=== PATIENT | female | born 1955 | race Caucasian/White ===

== ENCOUNTER 2017-11-01 05:58 | Emergency (ER) | payer BC, OTHER ==
[~2017-11-01] VITALS: Ht 165.1 cm; Wt 95.7 kg
[~2017-11-01 05:58] MED LIST: ESTR0.5T PO; IBUP800T23 PO; NEXI40CA PO; ROBA750T3 PO
[2017-11-01 06:04] VITALS: BP 134/66; PULSE 87; RESP 16; TEMP 98.8
[2017-11-01 06:16] VITALS: BP 148/51; PULSE 85; RESP 18; TEMP 98.8; O2SAT 97
[2017-11-01] MEDS ORDERED: OXYB5TAB8 PO (06:30)
[2017-11-01] MEDS ORDERED: BUPR75TA PO (06:31)
[2017-11-01] MEDS ORDERED: ESTR2TAB PO (06:33)
[2017-11-01] MEDS ORDERED: OMEP20TA93 PO (06:33)
[2017-11-01] MEDS ORDERED: TYLETAB34 PO (06:33)
[2017-11-01] MEDS ORDERED: LIDOCAINE HCL 1% 20 ML VIAL INFIL ONE (06:45)
[2017-11-01] MEDS ORDERED: DOXY100C PO (07:09)
--- NOTE | 2017-11-01 07:11 | PD ---
HPI Chief Complaint: Skin Problem Time Seen by Provider: 06:02 Travel History International Travel<30 days: No Contact w/Intl Traveler<30days: No Traveled to known affect area: No History of Present Illness HPI The patient is a 61-year-old female who has a history of carbuncle formation and developed an abscess on on her right abdominal wall. The abscess was 10 x 4 cm at that time. She saw an urgent care center physician who gave her pain pills and Bactrim DS. The Bactrim DS seemed to reduce the size of the redness but the abscess remained intact. The patient complained of increasing severity of pain and came in for drainage of the abscess. Her last tetanus shot was a year ago. The patient around the belt line, if she wears tight clothes, gets abscesses/reddened areas. The patient states the redness area was 10 x 8 cm before she started on the antibiotics. PFSH Past Medical History Arthritis: No Asthma: No Autoimmune Disease: No Anxiety: Yes Heart Rhythm Problems: No Cardiovascular Problems: No High Cholesterol: No Chest Pain: No (THIS IS FIRST EPISODE) Congestive Heart Failure: No COPD: No Cerebrovascular Accident: No Gastrointestinal Disorders: Yes GERD: Yes Headaches: Yes (BAD SINUS HEADACHES) Hepatitis: No Hiatal Hernia: No Hypertension: No Musculoskeletal: No Neurologic: No Reproductive: Yes Respiratory: Yes ("BRONCHITIS") Myocardial Infarction: No Seizures: No Sleep Apnea: No Ulcer: No Tetanus Vaccination: < 5 Years Influenza Vaccination: Yes Past Surgical History Abdominal Surgery: No AICD: No Cardiac Surgery: No Ear Surgery: No Endocrine Surgery: No Eye Surgery: No Genitourinary Surgery: No Gynecologic Surgery: Yes (HYSTERECTOMY) Hysterectomy: Yes Neurologic Surgery: No Oral Surgery: No Pacemaker: No Thoracic Surgery: No Other Surgery: Yes (HYSTERECTOMIES) Social History Alcohol Use: No Tobacco Use: No (QUIT) Substance Use: No Allergies-Medications (Allergen,Severity, Reaction): Coded Allergies: No Known Allergies (Verified , 07/13/14) Reported Meds & Prescriptions Reported Meds & Active Scripts Active Reported Tylenol-Codeine #3 (Acetaminophen-Codeine) 300-30 mg Tab 1 Tab PO Q4H PRN Omeprazole 20 Mg Tab 20 Mg PO DAILY Estradiol 2 Mg Tab 2 Mg PO DAILY Bupropion HCl 75 Mg Tab 75 Mg PO BID Ditropan (Oxybutynin Chloride) 5 Mg Tab 5 Mg PO Q12HR Review of Systems Except as stated in HPI: all other systems reviewed are Neg Physical Exam Narrative GENERAL: Well-nourished, well-developed patient in moderate apparent distress with her painful right abdominal wall abscess. SKIN: Focused skin assessment warm/dry. There is a 10 x 4 cm erythematous area surrounding an indurated area measuring about 3 cm in diameter. The area is exquisitely painful to the patient. HEAD: Normocephalic. EYES: No scleral icterus. No injection or drainage. NECK: Supple, trachea midline. No JVD or lymphadenopathy. CARDIOVASCULAR: Regular rate and rhythm without murmurs, gallops, or rubs. RESPIRATORY: Breath sounds equal bilaterally. No accessory muscle use. GASTROINTESTINAL: Abdomen soft, non-tender, nondistended. MUSCULOSKELETAL: No cyanosis, or edema. BACK: Nontender without obvious deformity. No CVA tenderness. Data Data Last Documented VS Vital Signs Date Time Temp Pulse Resp B/P (MAP) Pulse Ox O2 Delivery O2 Flow Rate FiO2 11/01/17 06:16 98.8 85 18 148/51 (83) 97 Orders Orders Lidocaine 1% Inj (Xylocaine 1% Inj) (11/01/17 06:45) Abscess Culture And Gram Stain (11/01/17 06:53) MDM Medical Decision Making Medical Screen Exam Complete: Yes Emergency Medical Condition: Yes Medical Record Reviewed: Yes Differential Diagnosis Abscess, cellulitis, allergic reaction-unlikely Narrative Course The patient has an abscess surrounded by cellulitis. Procedures Procedure Narrative A field block was done above the area of the abscess cavity. The area was prepped with Betadine and, under sterile technique, the abscess was incised and blunt dissected into the abscess cavity. A considerable amount of pus was recovered. The abscess cavity was thoroughly cleaned out with peroxide moistened Q-tips and peroxide irrigation. The patient tolerated the procedure well. Diagnosis Primary Impression: Abdominal wall abscess Additional Impression: Cellulitis, abdominal wall Additional Instructions: To keep the incision open from the abscess put a peroxide moistened Q-tip and once a day, you should probably do this for 5-7 days. A heating pad as useful, turn it on as well as setting an interposed a towel between your skin and the pad to avoid zhu. Warmth is good but hot does not improve the results and is dangerous. Return to emergency department if you have any problems. Med/Other Pt SpecificInfo: Prescription(s) given Scripts Doxycycline Hyclate (Doxycycline Hyclate) 100 Mg Cap 100 MG PO BID for Infection, #20 CAP 0 Refills Prov: Roger Moyer MD 11/01/17 Disposition: 01 DISCHARGE HOME Condition: Stable Roger Moyer MD Nov 01, 2017 07:11
== END 2017-11-01 07:22 | disposition home or self-care (01) ==
LOC: PHED 05:58
DX: L02.211 Cutaneous abscess of abdominal wall (principal); L03.311 Cellulitis of abdominal wall; B95.62 Methicillin resistant Staphylococcus aureus infection as the cause of diseases classified elsewhere
CPT/HCPCS: 10060; 86403; 87070; 87186

== ENCOUNTER 2017-11-03 12:20 | Inpatient (IN) | payer OTHER ==
[~2017-11-03] VITALS: Ht 165.1 cm; Wt 100.7 kg
[~2017-11-03 12:20] MED LIST changes: +BUPR75TA PO; +DOXY100C PO; -ESTR0.5T PO; +ESTR2TAB PO; -IBUP800T23 PO; -NEXI40CA PO; +OMEP20TA93 PO; +OXYB5TAB8 PO; -ROBA750T3 PO; +TYLETAB34 PO
[2017-11-03 13:02] VITALS: BP 117/58; PULSE 66; RESP 22; TEMP 98.2; O2SAT 94
[2017-11-03] MEDS ORDERED: Vancomycin Consult Pharmacy 1 EA OTHER SCH (13:45)
[2017-11-03] MEDS ORDERED: VANCOMYCIN INJ 200 ML IV ONE (13:45)
--- NOTE | 2017-11-03 14:09 | HHI.HP ---
HPI Service [facility] Primary Care Physician Derek Dow MD, PhD Admission Diagnosis Abdominal wall abscess, failed outpt therapy Chief Complaint: Abdominal wall abscess, cellulitis Travel History International Travel<30 Days: No Contact w/Intl Traveler <30 Da: No History of Present Illness 61 y.o. obese female sent to [facility] [place] for direct admission re: abdominal wall abscess that has failed to respond to outpt abx tx and localized I&D. She was initially evaluated 10/29/16 and placed on abx. Abscess increased in size and pain so she presented to ER 11/01/17 for I&D. Cltx obtained at that time has grown out MRSA (likely community acquired form). She has been taking Bactrim DS since 10/29/16. Doxy was added 11/01/17 and she was given Rocephin injection in PCP office 11/02/17. She presented to PCP office for re-eval again today. The anterior aspect of abscess had improved somewhat, but there was evidence of progression posteriorly with more erythema, TTP and induration. Additionally exam revealed possible deep, loculated abscess. Pt reported clamminess and chills at home so direct admit was undertaken. Review of Systems Constitutional: COMPLAINS OF: Diaphoretic episodes, Fatigue, Chills Eyes: DENIES: Blurred vision, Diplopia, Eye inflammation, Eye pain, Vision loss , Photosensitivity, Double Vision Ears, nose, mouth, throat: DENIES: Tinnitus, Hearing loss, Vertigo, Nasal discharge, Oral lesions, Throat pain, Hoarseness, Ear Pain, Running Nose, Epistaxis, Sinus Pain, Toothache, Odynophagia Respiratory: DENIES: Apneas, Cough, Snoring, Wheezing, Hemoptysis, Sputum production, Shortness of breath Cardiovascular: DENIES: Chest pain, Palpitations, Syncope, Dyspnea on Exertion , PND, Lower Extremity Edema, Orthopnea, Claudication Gastrointestinal: COMPLAINS OF: Abdominal pain, Nausea Musculoskeletal: COMPLAINS OF: Back pain Integumentary: COMPLAINS OF: Rash Hematologic/lymphatic: DENIES: Bruising, Lymphadenopathy Immunologic/allergic: DENIES: Eczema, Urticaria Neurologic: DENIES: Abnormal gait, Headache, Localized weakness, Paresthesias, Seizures, Speech Problems, Tremor, Poor Balance Psychiatric: COMPLAINS OF: Anxiety, DENIES: Confusion, Mood changes, Depression , Hallucinations, Agitation, Suicidal Ideation, Homicidal Ideation, Delusions, History of Bipolar, History of Schizophrenia Past Family Social History Past Medical History Obesity Anxiety Postmenopausal Ocular HTN. Hyperlipidemia Osteopenia vit D insufficiency Past Surgical History WILIAM/BSO 1969 Colonoscopy 10/2012 sessile polyp, tubular adenoma EGD 10/2012 gastritis/esophagitis Reported Medications Tyl #3 qid prn pain Bupropion XL 150mg/d Doxycycline 100mg bid since 11/01/17 Bactrim DS 1 bid since 10/29/17 Lexapro 10mg/d Estradiol 1mg/d Flonase prn Latanprost 0.005% 1 drop each eye qhs Prilosec 20mg/d Oxybutinin 5mg/d. vit D 1000 units/d Allergies: Coded Allergies: No Known Allergies (Verified , 07/13/14) Family History Father had prostate CA and Ulcerative colitis Sister had colon CA Social History Lives with her No regular EtOH. Works for [employer] Previously smoked from 2-10 cigarettes/day for appx 37 yrs; stopped appx 10 yrs ago. Physical Exam Vital Signs Vital Signs Date Time Temp Pulse Resp B/P (MAP) Pulse Ox O2 Delivery O2 Flow Rate FiO2 11/03/17 13:02 98.2 66 22 117/58 (77 94 Physical Exam (from office exam earlier 11/03/17) GENERAL: This is a well-nourished, obese, well-developed patient, in no apparent distress. SKIN: right anterior and lateral abd wall with erythema and induration with central open wound with packing in place. +TTP; +posterior spread of erythema and induration compared to 11/02/17 exam HEAD: Atraumatic. Normocephalic. No temporal or scalp tenderness. EYES: Pupils equal round and reactive. Extraocular motions intact. No scleral icterus. No injection or drainage. ENT: Nose without bleeding, purulent drainage or septal hematoma. Airway patent. NECK: Trachea midline. No JVD or lymphadenopathy. Supple, nontender, no meningeal signs. CARDIOVASCULAR: Regular rate and rhythm without murmurs, gallops, or rubs. RESPIRATORY: Clear to auscultation. Breath sounds equal bilaterally. No wheezes , rales, or rhonchi. GASTROINTESTINAL: Abdomen soft, nondistended. +ttp over right lateral wall due to surrounding cellulitic change/abscess. No hepato-splenomegaly, or palpable masses. MUSCULOSKELETAL: Extremities without clubbing, cyanosis, or edema. No joint tenderness, effusion, or edema noted. No calf tenderness. NEUROLOGICAL: Awake and alert. Cranial nerves II through XII intact. Motor and sensory grossly within normal limits. Five out of 5 muscle strength in all muscle groups. Normal speech. Caprini VTE Risk Assessment Caprini VTE Risk Assessment: Mod/High Risk (score >= 2) Caprini Risk Assessment Model Point Value = 1 Point Value = 2 Point Value = 3 Point Value = 5 Age 41-60 Minor surgery BMI > 25 kg/m2 Swollen legs Varicose veins or History of unexplained or recurrent spontaneous Oral contraceptives or hormone replacement Sepsis (< 1 month) Serious lung disease, including pneumonia (< 1 month) Abnormal pulmonary function Acute myocardial infarction Congestive heart failure (< 1 month) History of inflammatory bowel disease Medical patient at bed rest Age 61-74 Arthroscopic surgery Major open surgery (> 45 min) Laparoscopic surgery (> 45 min) Malignancy Confined to bed (> 72 hours) Immobilizing plaster cast Central venous access Age >= 75 History of VTE Family history of VTE Factor V Leiden Prothrombin [id number] Lupus anticoagulant Anticardiolipin antibodies Elevated serum homocysteine Heparin-induced thrombocytopenia Other congenital or acquired thrombophilia Stroke (< 1 month) Elective arthroplasty Hip, pelvis, or leg fracture Acute spinal cord injury (< 1 month) Prophylaxis Regimen Total Risk Factor Score Risk Level Prophylaxis Regimen 0-1 Low Early ambulation 2 Moderate Order ONE of the following: *Sequential Compression Device (SCD) *Heparin 5000 units SQ BID 3-4 Higher Order ONE of the following medications: *Heparin 5000 units SQ TID *Enoxaparin/Lovenox 40 mg SQ daily (WT < 150 kg, CrCl > 30 mL/min) *Enoxaparin/Lovenox 30 mg SQ daily (WT < 150 kg, CrCl > 10-29 mL/min) *Enoxaparin/Lovenox 30 mg SQ BID (WT < 150 kg, CrCl > 30 mL/min) AND/OR *Sequential Compression Device (SCD) 5 or more Highest Order ONE of the following medications: *Heparin 5000 units SQ TID (Preferred with Epidurals) *Enoxaparin/Lovenox 40 mg SQ daily (WT < 150 kg, CrCl > 30 mL/min) *Enoxaparin/Lovenox 30 mg SQ daily (WT < 150 kg, CrCl > 10-29 mL/min) *Enoxaparin/Lovenox 30 mg SQ BID (WT < 150 kg, CrCl > 30 mL/min) AND *Sequential Compression Device (SCD) Assessment and Plan Problem List: (1) Abscess of skin of abdomen ICD Codes: L02.211 - Cutaneous abscess of abdominal wall Status: Acute Plan: failed outpt tx. Will start vancomycin. MRSA noted on 11/01/17 cltx. IR consult for drainage. CT Abd/pelvis per D/W IR. (2) GERD (gastroesophageal reflux disease) ICD Codes: K21.9 - Gastro-esophageal reflux disease without esophagitis Status: Chronic Plan: Protonix (3) Anxiety ICD Codes: F41.9 - Anxiety disorder, unspecified Status: Chronic Plan: continue home meds. Ativan prn Code Status full Discussed Condition With Pt, her , nurse and Dr Cox Physician Certification 2 Midnight Certification Type: Admission for Inpatient Services Order for Inpatient Services The services are ordered in accordance with Medicare regulations or non- Medicare payer requirements, as applicable. In the case of services not specified as inpatient-only, they are appropriately provided as inpatient services in accordance with the 2-midnight benchmark. Estimated LOS (days): 2 days is the estimated time the patient will need to remain in the hospital, assuming treatment plan goals are met and no additional complications. Post-Hospital Plan: Home Derek Dow MD PhD Nov 03, 2017 14:09
[2017-11-03] MEDS ORDERED: DIATRIZOATE MEGLUM/DIATRIZOATE SOD 9 ML CUP PO ONE (15:00)
[2017-11-03 16:00] VITALS: BP 121/57; PULSE 50; RESP 16; TEMP 97.4; O2SAT 95
[2017-11-03] MEDS: MORPHINE SULFATE 2 MG/ML INJ IV PUSH PRN ×2 (16:19→22:33)
[2017-11-03] MEDS: ONDANSETRON HCL 4 MG/2 ML VIAL IV PUSH PRN (16:19)
[2017-11-03] MEDS ORDERED: VANCOMYCIN INJ 2,000 MG in SODIUM CHLORID 0.9% 500 ML INJ 500 ML IV ONE (17:00)
[2017-11-03 20:00] VITALS: BP 106/54; PULSE 59; RESP 17; TEMP 97.6; O2SAT 92
[2017-11-03 20:13] LABS: AUTOMATED NEUTROPHIL # 5.3 TH/MM3 (1.8-7.7); BASOPHIL # 0.1 TH/MM3 (0-0.2); BASOPHIL % 0.9 % (0.0-2.0); EOSINOPHIL # 0.2 TH/MM3 (0-0.4); EOSINOPHIL % 2.6 % (0.0-4.0); HEMATOCRIT 32.1 % (35.0-46.0); HEMOGLOBIN 11.5 GM/DL (11.6-15.3); LYMPH % 26.4 % (9.0-44.0); LYMPHOCYTE # 2.2 TH/MM3 (1.0-4.8); MEAN CELL VOLUME 88.3 FL (80.0-100.0); MEAN CORPUSCULAR HEMOGLOBIN 31.7 PG (27.0-34.0); MEAN CORPUSCULAR HGB CONC 35.8 % (32.0-36.0); MEAN PLATELET VOLUME 8.6 FL (7.0-11.0); MONO % 7.1 % (0.0-8.0); MONOCYTE # 0.6 TH/MM3 (0-0.9); PLATELET COUNT 317 TH/MM3 (150-450); RED BLOOD COUNT 3.63 MIL/MM3 (4.00-5.30); RED CELL DISTRIBUTION WIDTH 13.1 % (11.6-17.2); WHITE BLOOD COUNT 8.4 TH/MM3 (4.0-11.0)
[2017-11-03 20:30] LABS: ALBUMIN 2.8 GM/DL (3.4-5.0); AST (GOT) 24 U/L (15-37); BICARBONATE 26.2 MEQ/L (21.0-32.0); BLOOD UREA NITROGEN 13 MG/DL (7-18); CALCIUM 8.2 MG/DL (8.5-10.1); CHLORIDE 107 MEQ/L (98-107); CREATININE 0.93 MG/DL (0.50-1.00); GLOMERULAR FILTRATION RATE 61 ML/MIN (>89); GLUCOSE,RANDOM 91 MG/DL (74-106); SODIUM (NA) 138 MEQ/L (136-145)
[2017-11-03 20:34] LABS: ALKALINE PHOSPHATASE 97 U/L (45-117); ALT (GPT) 30 U/L (10-53); PROTHROMBIN TIME - PATIENT 10.5 SEC (9.8-11.6); TOTAL BILIRUBIN ADULT 0.3 MG/DL (0.2-1.0); TOTAL PROTEIN 6.8 GM/DL (6.4-8.2)
[2017-11-03] MEDS ORDERED: IOHEXOL 350 MG/ML 10 ML VIAL (for RAD DIAG) IVCONTRAST ONE (20:37)
--- NOTE | 2017-11-03 20:50 | RADRPT ---
EXAM DATE/TIME: 11/03/2017 20:20 [facility] COMPARISON: No previous studies available for comparison. INDICATIONS : Evaluate abdominal wall abscess. IV CONTRAST: 96 cc Omnipaque 350 (iohexol) IV ORAL CONTRAST: Prescribed oral contrast ingested. RADIATION DOSE: 16.49 CTDIvol (mGy) MEDICAL HISTORY : None SURGICAL HISTORY : Hysterectomy. ENCOUNTER: Initial ACUITY: 1 day PAIN SCALE: 3/10 LOCATION: Right abdomen TECHNIQUE: Volumetric scanning of the abdomen and pelvis was performed. Using automated exposure control and ad justment of the mA and/or kV according to patient size, radiation dose was kept as low as reasonably achievable to obtain optimal diagnostic quality images. DICOM format image data is available electro nically for review and comparison. FINDINGS: LOWER LUNGS: The visualized lower lungs are clear. LIVER: Homogeneous density without lesion except for a 5 mm hypodense lesion left lobe of liver.. There is no dilation of the biliary tree. No calcified gallstones. SPLEEN: Normal size without lesion. PANCREAS: Within normal limits. KIDNEYS: Normal in size and shape. There is no mass, stone or hydronephrosis. ADRENAL GLANDS: 3.0 x 3.8 cm mass in the left adrenal gland indeterminate by size. Outpatient adrenal MRI is recommen ded. VASCULAR: There is no aortic aneurysm. BOWEL/MESENTERY: The stomach, small bowel, and colon demonstrate no acute abnormality. There is no free intraperitone al air or fluid. Small duodenal diverticulum. ABDOMINAL WALL: There is a very impressive edema and subcutaneous air in the right abdominal wall. There numerous tin y locules of air with some early fluid. I don't see drainable abscess but there is marked inflammatio n. There is a large lipoma in the left lateral abdominal wall. RETROPERITONEUM: There is no lymphadenopathy. BLADDER: No wall thickening or mass. Posterior the bladder there is a 3.7 cm low-density mass of uncertain prabhjot ology. Could be a seroma or lymphocele related to the hysterectomy. Could be a bladder diverticulum. It is not overly concerning in appearance, being primarily cystic in density REPRODUCTIVE: Status post hysterectomy INGUINAL: There is no lymphadenopathy or hernia. MUSCULOSKELETAL: Within normal limits for patient age. CONCLUSION: Significant soft tissue edema and subcutaneous air in the right abdominal sidewall with overlying ski n thickening concerning for a severe cellulitis. At this point did not see drainable fluid collection or abscess for drainage. Large lipoma in the left lateral sidewall. Solid left adrenal mass needs outpatient MRI with in phase out of phase imaging Mass posterior to the bladder mostly benign in appearance. Roque Mazariegos MD on November 03, 2017 at 20:43 Board Certified Radiologist. This report was verified electronically.
[2017-11-03] MEDS ORDERED: OXYBUTYNIN CHLORIDE 5 MG TAB PO SCH (21:00)
[2017-11-03] MEDS: LORazepam 1 MG TAB PO PRN (22:33)
[2017-11-04] VITALS: BP 114/53; PULSE 58; RESP 18; TEMP 98.4; O2SAT 94
[2017-11-04 08:00] VITALS: BP 107/53; PULSE 68; RESP 16; TEMP 97.5; O2SAT 94
[2017-11-04] MEDS: buPROPion HCL 150 MG SUSTAINED RELEASE TAB PO SCH (09:06)
[2017-11-04] MEDS: MORPHINE SULFATE 2 MG/ML INJ IV PUSH PRN ×4 (09:06→22:12)
[2017-11-04] MEDS: OXYBUTYNIN CHLORIDE 5 MG TAB PO SCH (09:06)
[2017-11-04] MEDS: ONDANSETRON HCL 4 MG/2 ML VIAL IV PUSH PRN ×2 (09:07→23:02)
[2017-11-04] MEDS: PANTOPRAZOLE SOD 40 MG DELAYED RELEASE TAB PO SCH (09:07)
[2017-11-04] MEDS: ESCITALOPRAM OXALATE 10 MG TAB PO SCH (09:07)
[2017-11-04] MEDS: ESTRADIOL 1 MG TAB PO SCH (09:07)
[2017-11-04 10:07] LABS: CREATININE 0.9 MG/DL (0.50-1.00)
--- NOTE | 2017-11-04 11:33 | HHI.PR ---
Subjective Remarks Pt reports that she does not feel that her cellulitis is not much better today She has been afebrile Objective Vitals Vital Signs Date Time Temp Pulse Resp B/P (MAP) Pulse Ox O2 Delivery O2 Flow Rate FiO2 11/04/17 08:00 97.5 68 16 107/53 (71) 94 11/04/17 00:00 98.4 58 18 114/53 (73) 94 11/03/17 20:00 97.6 59 17 106/54 (71) 92 11/03/17 16:00 97.4 50 16 121/57 (78) 95 11/03/17 13:02 98.2 66 22 117/58 (77) 94 Result Diagram: 11/03/17195111/04/17921 Other Results Laboratory Tests Test 11/03/17 19:52 11/04/17 09:22 White Blood Count 8.4 TH/MM3 Red Blood Count 3.63 MIL/MM3 Hemoglobin 11.5 GM/DL Hematocrit 32.1 % Mean Corpuscular Volume 88.3 FL Mean Corpuscular Hemoglobin 31.7 PG Mean Corpuscular Hemoglobin Concent 35.8 % Red Cell Distribution Width 13.1 % Platelet Count 317 TH/MM3 Mean Platelet Volume 8.6 FL Neutrophils (%) (Auto) 63.0 % Lymphocytes (%) (Auto) 26.4 % Monocytes (%) (Auto) 7.1 % Eosinophils (%) (Auto) 2.6 % Basophils (%) (Auto) 0.9 % Neutrophils # (Auto) 5.3 TH/MM3 Lymphocytes # (Auto) 2.2 TH/MM3 Monocytes # (Auto) 0.6 TH/MM3 Eosinophils # (Auto) 0.2 TH/MM3 Basophils # (Auto) 0.1 TH/MM3 CBC Comment DIFF FINAL Differential Comment Prothrombin Time 10.5 SEC Prothromb Time International Ratio 1.0 RATIO Activated Partial Thromboplast Time 29.2 SEC Blood Urea Nitrogen 13 MG/DL Creatinine 0.93 MG/DL 0.90 MG/DL Random Glucose 91 MG/DL Total Protein 6.8 GM/DL Albumin 2.8 GM/DL Calcium Level 8.2 MG/DL Alkaline Phosphatase 97 U/L Aspartate Amino Transf (AST/SGOT) 24 U/L Alanine Aminotransferase (ALT/SGPT) 30 U/L Total Bilirubin 0.3 MG/DL Sodium Level 138 MEQ/L Potassium Level 4.0 MEQ/L Chloride Level 107 MEQ/L Carbon Dioxide Level 26.2 MEQ/L Anion Gap 5 MEQ/L Estimat Glomerular Filtration Rate 61 ML/MIN 63 ML/MIN Imaging Last Impressions Abdomen/Pelvis CT 11/03/17 0000 Signed Impressions: Service Date/Time: Friday, November 03, 2017 20:20 - CONCLUSION: Significant soft tissue edema and subcutaneous air in the right abdominal sidewall with overlying skin thickening concerning for a severe cellulitis. At this point did not see drainable fluid collection or abscess for drainage. Large lipoma in the left lateral sidewall. Solid left adrenal mass needs outpatient MRI with in phase out of phase imaging Mass posterior to the bladder mostly benign in appearance. Roque Mazariegos MD Objective Remarks General: NAD, AAOx3 Chest: CTA bilaterally Cardiac: Regular Abd: +BS, soft, erythematous skin changes on the right mid abdomen and flank with warmth and tenderness to the touch. There is some fluctuance to the skin. Previous I&D site was just packed with iodoform gauze. Ext: No edema A/P Problem List: (1) Abscess of skin of abdomen ICD Codes: L02.211 - Cutaneous abscess of abdominal wall Status: Acute Plan: Abdominal wall abscess MRSA infection - Pt is a 61 y/o female who was directly admitted by her PCP, Dr. Dow, for an abdominal wall abscess that has failed to respond to outpt abx tx and localized I&D. - She was initially evaluated 10/29/16 and placed on Bactrim DS. The abscess increased in size and pain so she presented to ER 11/01/17 for I&D. Culture obtained at that time has grown out MRSA ( likely community acquired form). She has been taking Bactrim DS since 10/29/16 and Doxy was added on 11/01/17. Pt was also given Rocephin injection in PCP office on 11/02/17. She presented back to PCP office for re-eval on 11/03 and the anterior aspect of abscess had improved somewhat, but there was evidence of progression posteriorly with more erythema, tenderness and induration. - Pt was started on Vancomycin IV on 11/03/17. - MRSA noted on culture from 11/01/17 - CT Abd/pelvis (11/03/17) --> Significant soft tissue edema and subcutaneous air in the right abdominal sidewall with overlying skin thickening concerning for a severe cellulitis. At this point did not see drainable fluid collection or abscess for drainage. Large lipoma in the left lateral sidewall. - Add on Zosyn to cover for anaerobes with noted gas in the underlying tissues - Cont. with IV Abx and monitor clinical progress - Consult General Surgery, case discussed with Dr. Flores - Daily dressing changes and packing with iodoform gauze - Supportive care - DVT prophylaxis with SCDs Adrenal Mass - CT Abd/pelvis (11/03/17) also noted a solid left adrenal mass - She will need outpatient MRI for followup GERD - PPI Anxiety - Continue home meds. - Ativan prn (2) GERD (gastroesophageal reflux disease) ICD Codes: K21.9 - Gastro-esophageal reflux disease without esophagitis Status: Chronic (3) Anxiety ICD Codes: F41.9 - Anxiety disorder, unspecified Status: Chronic Assessment and Plan Patient examined. Assessment and plan formulated with Latasha Hogue PA-C. I agree with the above. large right flank cellulitis. s/p i/d 11/01...mrsa...progressed despite po abx. ct shows severe celllulitis..no obvious abscess but alot of gas in the soft tissues. no clinical improvement overnight on vanco add zosyn. discussed with gen surg Dr Flores to follow along. Latasha Hogue Nov 04, 2017 11:32 Tevin Cox MD Nov 04, 2017 12:42
[2017-11-04 12:00] VITALS: BP 113/52; PULSE 70; RESP 18; TEMP 97.5; O2SAT 93
--- NOTE | 2017-11-04 13:16 | PD.CONS ---
HPI Service General Surgery Consult Requested By Dr. Cox Reason for Consult right flank abscess Primary Care Physician Derek Dow MD, PhD History of Present Illness 61 yo F with right flank infection for about 5 days. It started as small boil but progressively worsened. She underwent I&D in ED without much improvement. Cx grew MRSA. She was on outpatient antibiotics and seen by Dr. Dow. Yesterday she presented to ED for the same. CT a/p shows edema and SQ air. No leukocytosis. She c/o significant pain at the site. Review of Systems Constitutional: DENIES: Fever, Chills Eyes: DENIES: Eye inflammation, Eye pain Respiratory: DENIES: Wheezing, Shortness of breath Cardiovascular: DENIES: Chest pain, Palpitations Gastrointestinal: COMPLAINS OF: Abdominal pain, DENIES: Nausea, Vomiting Integumentary: DENIES: Pruritus, Rash Neurologic: DENIES: Paresthesias, Seizures Past Family Social History Past Medical History Obesity Anxiety Ocular HTN. Hyperlipidemia Osteopenia vit D insufficiency Past Surgical History WILIAM/BSO 1968 Colonoscopy 10/2012 sessile polyp, tubular adenoma EGD 10/2012 gastritis/esophagitis Reported Medications Reported Meds & Active Scripts Active Doxycycline Hyclate 100 Mg Cap 100 Mg PO BID Reported Tylenol-Codeine #3 (Acetaminophen-Codeine) 300-30 mg Tab 1 Tab PO Q4H PRN Omeprazole 20 Mg Tab 20 Mg PO DAILY Estradiol 2 Mg Tab 2 Mg PO DAILY Bupropion HCl 75 Mg Tab 75 Mg PO BID Ditropan (Oxybutynin Chloride) 5 Mg Tab 5 Mg PO Q12HR Allergies: Coded Allergies: No Known Allergies (Verified Allergy, Unknown, 11/03/17) Active Ordered Medications Current Medications Medications (Trade) Dose Ordered Sig/Tia Route Start Time Stop Time Status Last Admin (Morphine Inj) 2 mg Q3H PRN IV PUSH 11/03/17 13:45 11/04/17 09:06 Pharmacy Profile Note 0 ml @ 0 mls/hr UNSCH OTHER 11/03/17 13:45 (Protonix) 40 mg DAILY PO 11/04/17 09:00 11/04/17 09:07 (Lexapro) 10 mg DAILY PO 11/04/17 09:00 11/04/17 09:07 (Zofran Inj) 4 mg Q6HR PRN IV PUSH 11/03/17 13:45 11/04/17 09:07 (Wellbutrin Sr) 150 mg DAILY PO 11/04/17 09:00 11/04/17 09:06 (Ativan) 1 mg Q8H PRN PO 11/03/17 13:45 11/03/17 22:33 (Ditropan) 5 mg DAILY PO 11/04/17 09:00 11/04/17 09:06 (Estradiol) 1 mg DAILY PO 11/04/17 09:00 11/04/17 09:07 Vancomycin HCl 1500 mg/Sodium Chloride 515 ml @ 250 mls/hr Q18H IV 11/04/17 11:00 Miscellaneous Information SPECIFIC LAB TO BE DRAWN: VANCO TROUGH DATE TO BE DR... ONCE ONCE .XX 11/05/17 22:45 11/05/17 22:46 Piperacillin Sod/ Tazobactam Sod 100 ml @ 200 mls/hr Q6H IV 11/04/17 14:00 Family History Noncontributory Social History No current alcohol tobacco or drug use. Physical Exam Vital Signs Vital Signs Date Time Temp Pulse Resp B/P (MAP) Pulse Ox O2 Delivery O2 Flow Rate FiO2 11/04/17 12:00 97.5 70 18 113/52 (72) 93 11/04/17 08:00 97.5 68 16 107/53 (71) 94 11/04/17 00:00 98.4 58 18 114/53 (73) 94 11/03/17 20:00 97.6 59 17 106/54 (71) 92 11/03/17 16:00 97.4 50 16 121/57 (78) 95 Physical Exam GENERAL: Awake and alert. No acute distress. Cooperative. Obese. HEAD: Normocephalic. Atraumatic. EYES: Pupils equal round and reactive to light bilaterally. No scleral icterus. ENT: Moist oral mucosa. NECK: Trachea midline. CHEST: Lungs clear to auscultation bilaterally with no wheezing or rhonchi. No respiratory distress. CARDIOVASCULAR: Regular rate and rhythm. ABDOMEN: Obese. Right flank with erythema and induration and deep fluctuance. Surrounding soft tissue is nontender. No crepitus present. EXTREMITIES: No cyanosis or edema. SKIN: Warm, dry, nonjaundiced. Laboratory Laboratory Tests Test 11/03/17 19:52 11/04/17 09:22 White Blood Count 8.4 Red Blood Count 3.63 Hemoglobin 11.5 Hematocrit 32.1 Mean Corpuscular Volume 88.3 Mean Corpuscular Hemoglobin 31.7 Mean Corpuscular Hemoglobin Concent 35.8 Red Cell Distribution Width 13.1 Platelet Count 317 Mean Platelet Volume 8.6 Neutrophils (%) (Auto) 63.0 Lymphocytes (%) (Auto) 26.4 Monocytes (%) (Auto) 7.1 Eosinophils (%) (Auto) 2.6 Basophils (%) (Auto) 0.9 Neutrophils # (Auto) 5.3 Lymphocytes # (Auto) 2.2 Monocytes # (Auto) 0.6 Eosinophils # (Auto) 0.2 Basophils # (Auto) 0.1 CBC Comment DIFF FINAL Differential Comment Prothrombin Time 10.5 Prothromb Time International Ratio 1.0 Activated Partial Thromboplast Time 29.2 Blood Urea Nitrogen 13 Creatinine 0.93 0.90 Random Glucose 91 Total Protein 6.8 Albumin 2.8 Calcium Level 8.2 Alkaline Phosphatase 97 Aspartate Amino Transf (AST/SGOT) 24 Alanine Aminotransferase (ALT/SGPT) 30 Total Bilirubin 0.3 Sodium Level 138 Potassium Level 4.0 Chloride Level 107 Carbon Dioxide Level 26.2 Anion Gap 5 Estimat Glomerular Filtration Rate 61 63 Result Diagram: 11/03/17195111/04/17 0922 Imaging Last Impressions Abdomen/Pelvis CT 11/03/17 0000 Signed Impressions: Service Date/Time: Friday, November 03, 2017 20:20 - CONCLUSION: Significant soft tissue edema and subcutaneous air in the right abdominal sidewall with overlying skin thickening concerning for a severe cellulitis. At this point did not see drainable fluid collection or abscess for drainage. Large lipoma in the left lateral sidewall. Solid left adrenal mass needs outpatient MRI with in phase out of phase imaging Mass posterior to the bladder mostly benign in appearance. Roque Mazariegos MD Assessment and Plan Assessment and Plan 61 yo F with severe cellulitis and underlying abscess, not improving with local I&D and antibiotics. Plan to proceed to OR tomorrow for incision and drainage of right flank abscess, possible vac placement. Discussed in detail with the patient and she desires to proceed. Mason Flores MD Nov 04, 2017 13:16
[2017-11-04] MEDS: VANCOMYCIN INJ 1,500 MG in SODIUM CHLORID 0.9% 500 ML INJ 500 ML IV SCH (13:21)
[2017-11-04] MEDS: PIPERACIL-TAZO 4.5 GM PREMIX 100 ML IV SCH ×2 (15:38→20:59)
[2017-11-04 16:00] VITALS: BP 115/56; PULSE 64; RESP 17; TEMP 97.2; O2SAT 92
[2017-11-04 20:00] VITALS: BP 104/50; PULSE 88; RESP 16; TEMP 98.2; O2SAT 91
[2017-11-04] MEDS: LORazepam 1 MG TAB PO PRN (22:12)
[2017-11-04] MEDS ORDERED: CHLORHEXIDINE GLUCONATE 2 % 1 PACK (2 CLOTHS) TOPICAL PRN (23:15)
[2017-11-04] MEDS ORDERED: SODIUM CHLORID 0.9% 500 ML IV PRN (23:15)
[2017-11-04] MEDS ORDERED: POVIDONE IODINE 5% (ANTISEPSIS KIT) 4 APPLICATIONS EACH NARE PRN (23:15)
[2017-11-04] MEDS ORDERED: LACTATED RINGER'S 1000 ML IV PRN (23:15)
[2017-11-05] VITALS: BP 110/49; PULSE 82; RESP 16; TEMP 98.7; O2SAT 95
[2017-11-05] MEDS: PIPERACIL-TAZO 4.5 GM PREMIX 100 ML IV SCH ×4 (01:05→22:40)
[2017-11-05] MEDS: VANCOMYCIN INJ 1,500 MG in SODIUM CHLORID 0.9% 500 ML INJ 500 ML IV SCH ×2 (05:01→22:40)
[2017-11-05 05:34] LABS: AUTOMATED NEUTROPHIL # 4.9 TH/MM3 (1.8-7.7); BASOPHIL # 0.1 TH/MM3 (0-0.2); BASOPHIL % 0.9 % (0.0-2.0); EOSINOPHIL # 0.2 TH/MM3 (0-0.4); EOSINOPHIL % 2.6 % (0.0-4.0); HEMATOCRIT 34.2 % (35.0-46.0); HEMOGLOBIN 11.2 GM/DL (11.6-15.3); LYMPH % 23.7 % (9.0-44.0); LYMPHOCYTE # 1.8 TH/MM3 (1.0-4.8); MEAN CELL VOLUME 89.7 FL (80.0-100.0); MEAN CORPUSCULAR HEMOGLOBIN 29.3 PG (27.0-34.0); MEAN CORPUSCULAR HGB CONC 32.6 % (32.0-36.0); MEAN PLATELET VOLUME 8.4 FL (7.0-11.0); MONO % 7.3 % (0.0-8.0); MONOCYTE # 0.6 TH/MM3 (0-0.9); NEUT % 65.5 % (16.0-70.0); PLATELET COUNT 334 TH/MM3 (150-450); RED BLOOD COUNT 3.81 MIL/MM3 (4.00-5.30); RED CELL DISTRIBUTION WIDTH 13.3 % (11.6-17.2); WHITE BLOOD COUNT 7.5 TH/MM3 (4.0-11.0)
[2017-11-05 06:01] LABS: BICARBONATE 29.1 MEQ/L (21.0-32.0); CALCIUM 8.2 MG/DL (8.5-10.1); CREATININE 0.95 MG/DL (0.50-1.00); MAGNESIUM 2.2 MG/DL (1.5-2.5)
[2017-11-05 08:00] VITALS: BP 141/55; PULSE 68; RESP 17; TEMP 97.8; O2SAT 93
[2017-11-05] MEDS: OXYBUTYNIN CHLORIDE 5 MG TAB PO SCH (08:54)
[2017-11-05] MEDS: buPROPion HCL 150 MG SUSTAINED RELEASE TAB PO SCH (08:55)
[2017-11-05] MEDS: ESCITALOPRAM OXALATE 10 MG TAB PO SCH (08:55)
[2017-11-05] MEDS: ESTRADIOL 1 MG TAB PO SCH (08:55)
[2017-11-05] MEDS: PANTOPRAZOLE SOD 40 MG DELAYED RELEASE TAB PO SCH (08:55)
[2017-11-05] MEDS ORDERED: BUPIVACAINE HCL PF 0.5% 30 ML VIAL ONE (11:59)
[2017-11-05 12:00] VITALS: BP 121/59; PULSE 62; RESP 18; TEMP 98.1; O2SAT 95
[2017-11-05] MEDS ORDERED: SUCCINYLCHOLINE CHLORIDE 200 MG/10 ML VIAL IV ONE (12:00)
[2017-11-05] MEDS ORDERED: ONDANSETRON HCL 4 MG/2 ML VIAL IV ONE (12:00)
[2017-11-05] MEDS ORDERED: LIDOCAINE HCL 1% PF 5 ML SYRINGE OTHER ONE (12:00)
[2017-11-05] MEDS ORDERED: ePHEDrine/NS 25 MG/5 ML SYRINGE IV ONE (12:00)
[2017-11-05] MEDS ORDERED: PROPOFOL 200 MG/20 ML AMP IV ONE (12:00)
[2017-11-05] MEDS ORDERED: DEXAMETHASONE SOD PHOS 4 MG/ML VIAL IV ONE (12:00)
[2017-11-05] MEDS ORDERED: ROCURONIUM INJ 50 MG/5 ML SYRINGE IV PUSH ONE (12:00)
[2017-11-05] MEDS ORDERED: BUPIVACAINE/EPINEPHRINE 0.75% PF 30 ML VIAL ONE (13:29)
--- NOTE | 2017-11-05 14:05 | PD.OP ---
cc: Mason Flores MD; Derek Dow MD PhD Operative Report Date of Surgery: Nov 05, 2017 Preoperative Diagnosis: (1) Abscess of skin of abdomen Postoperative Diagnosis: (1) Abscess of skin of abdomen Procedure: Incision and drainage right flank abscess with placement of wound vac Anesthesia: GEN Surgeon: Mason Flores Manager Dairy(s): Neto Operation and Findings: EBL: 20cc Operative findings: right flank cellulitis and abscess with small amt necrotic fatty tissue Procedure in detail: The patient was taken to the operating room placed in supine position. General and anesthesia was induced. She was then placed lateral on beanbag with right side up. The right flank was prepped and draped in usual sterile fashion. Surgical timeout was performed to verify correct patient procedure and site. The patient was on scheduled antibiotics. Local anesthetic was injected in skin and subcutaneous tissues tissue overlying the right flank abscess. The patient had a small site of drainage at at previous incision and drainage site. There was fluctuance and induration and erythema laterally from this site along the right flank. The incision was extended laterally approximately 10 cm. Dissection was carried out through subcutaneous tissue with electrocautery. The abscess cavity was encountered with drainage of a moderate amount of purulent fluid. There were couple different areas of necrotic subcutaneous tissue which were debrided with electrocautery and with curettes. The fluid culture and a tissue culture was sent. All loculations were broken up. The cavity was irrigated with normal saline. Hemostasis was achieved. A small wound VAC was cut to size and placed in the wound. There was a good seal. The VAC was placed and -125 mmHg of medium intensity continuous suction. The patient tolerated procedure well and was taken to PACU in stable condition. Mason Flores MD Nov 05, 2017 14:05
[2017-11-05] MEDS ORDERED: DO NOT ADM ANY ANTICOAGULANT DRUGS PRN (14:12)
[2017-11-05 16:00] VITALS: BP 122/58; PULSE 78; RESP 18; TEMP 95.8; O2SAT 97
--- NOTE | 2017-11-05 16:19 | HHI.PR ---
Subjective Remarks pt back from surgery. present. Objective Vitals heart reg lung cta abd right flank wound vac ext no edema Vital Signs Date Time Temp Pulse Resp B/P (MAP) Pulse Ox O2 Delivery O2 Flow Rate FiO2 11/05/17 16:00 95.8 78 18 122/58 (79) 97 11/05/17 15:00 98.4 82 15 123/58 (79) 95 Nasal Cannula 3 11/05/17 14:45 81 14 123/57 (79) 93 Nasal Cannula 3 11/05/17 14:30 84 14 134/61 (85) 93 Nasal Cannula 3 11/05/17 14:12 98.7 88 14 157/65 (95) 93 Nasal Cannula 3 11/05/17 12:00 98.1 62 18 121/59 (79) 95 11/05/17 08:00 97.8 68 17 141/55 (83) 93 11/05/17 00:00 98.7 82 16 110/49 (69) 95 11/04/17 20:00 98.2 88 16 104/50 (68) 91 11/05/17 11/05/17 11/06/17 15:00 23:00 07:00 Intake Total 1315 ml Output Total 20 ml Balance 1295 ml IV Total 1315 ml Output Estimated Blood Loss 20 ml Result Diagram: 11/05/17 0513 11/05/17 0513 Imaging Last Impressions Abdomen/Pelvis CT 11/03/17 0000 Signed Impressions: Service Date/Time: Friday, November 03, 2017 20:20 - CONCLUSION: Significant soft tissue edema and subcutaneous air in the right abdominal sidewall with overlying skin thickening concerning for a severe cellulitis. At this point did not see drainable fluid collection or abscess for drainage. Large lipoma in the left lateral sidewall. Solid left adrenal mass needs outpatient MRI with in phase out of phase imaging Mass posterior to the bladder mostly benign in appearance. Roque Mazariegos MD A/P Problem List: (1) Abscess of skin of abdomen ICD Codes: L02.211 - Cutaneous abscess of abdominal wall Status: Acute Plan: Abdominal wall abscess MRSA infection - Pt is a 61 y/o female who was directly admitted by her PCP, Dr. Dow, for an abdominal wall abscess that has failed to respond to outpt abx tx and localized I&D. - She was initially evaluated 10/29/16 and placed on Bactrim DS. The abscess increased in size and pain so she presented to ER 11/01/17 for I&D. Culture obtained at that time has grown out MRSA ( likely community acquired form). She has been taking Bactrim DS since 10/29/16 and Doxy was added on 11/01/17. Pt was also given Rocephin injection in PCP office on 11/02/17. She presented back to PCP office for re-eval on 11/03 and the anterior aspect of abscess had improved somewhat, but there was evidence of progression posteriorly with more erythema, tenderness and induration. - Pt was started on Vancomycin IV on 11/03/17. - MRSA noted on culture from 11/01/17 - CT Abd/pelvis (11/03/17) --> Significant soft tissue edema and subcutaneous air in the right abdominal sidewall with overlying skin thickening concerning for a severe cellulitis. Large lipoma in the left lateral sidewall. - Added on Zosyn to cover for anaerobes with noted gas in the underlying tissues on 11/04 -consulted dr Flores who took pt to OR on 11/05 for debridement of abscess and wound vac placed Adrenal Mass - CT Abd/pelvis (11/03/17) also noted a solid left adrenal mass - She will need outpatient MRI for followup - We will need to discuss with her before d/c home GERD - PPI Anxiety - Continue home meds. - Ativan prn (2) GERD (gastroesophageal reflux disease) ICD Codes: K21.9 - Gastro-esophageal reflux disease without esophagitis Status: Chronic (3) Anxiety ICD Codes: F41.9 - Anxiety disorder, unspecified Status: Chronic Tevin Cox MD Nov 05, 2017 16:19
--- NOTE | 2017-11-05 16:52 | EKG ---
Date Performed: 11/05/2017 Time Performed: 10:02:57 PTAGE: 61 years EKG: SINUS BRADYCARDIA WITH OCCASIONAL VENTRICULAR PREMATURE COMPLEXES NONSPECIFIC T-WAVE ABNORM ALITY BORDERLINE ECG PREVIOUS TRACING : 01/28/2012 12.22 Since previous tracing, no significant change noted DOCTOR: Ralph Padilla Interpretating Date/Time 11/05/2017 16:51:24
[2017-11-05 20:00] VITALS: BP 118/58; PULSE 79; RESP 21; TEMP 95.6; O2SAT 95
[2017-11-05] MEDS: MORPHINE SULFATE 2 MG/ML INJ IV PUSH PRN (22:35)
[2017-11-05] MEDS ORDERED: PHARMACY ORDERED LAB ONE (22:45)
[2017-11-06 00:09] VITALS: BP 115/60; PULSE 75; RESP 21; TEMP 96.5; O2SAT 94
[2017-11-06] MEDS: oxyCODONE/ACETAMINOPHEN 5 MG/325 MG TAB PO PRN ×3 (01:09→18:34)
[2017-11-06] MEDS: ONDANSETRON HCL 4 MG/2 ML VIAL IV PUSH PRN (01:09)
[2017-11-06] MEDS: PIPERACIL-TAZO 4.5 GM PREMIX 100 ML IV SCH ×3 (01:35→13:22)
[2017-11-06] MEDS: LORazepam 1 MG TAB PO PRN ×2 (02:55→22:33)
[2017-11-06 04:00] VITALS: BP 99/49; PULSE 77; RESP 20; TEMP 96.2; O2SAT 93
[2017-11-06 07:30] LABS: CREATININE 0.8 MG/DL (0.50-1.00)
[2017-11-06 08:00] VITALS: BP 102/52; PULSE 62; RESP 20; TEMP 97; O2SAT 95
[2017-11-06] MEDS: ESTRADIOL 1 MG TAB PO SCH (10:18)
[2017-11-06] MEDS: PANTOPRAZOLE SOD 40 MG DELAYED RELEASE TAB PO SCH (10:18)
[2017-11-06] MEDS: buPROPion HCL 150 MG SUSTAINED RELEASE TAB PO SCH (10:18)
[2017-11-06] MEDS: OXYBUTYNIN CHLORIDE 5 MG TAB PO SCH (10:18)
[2017-11-06] MEDS: ESCITALOPRAM OXALATE 10 MG TAB PO SCH (10:18)
[2017-11-06 12:00] VITALS: BP 95/57; PULSE 73; RESP 20; TEMP 97.9; O2SAT 96
--- NOTE | 2017-11-06 12:14 | HHI.PR ---
Subjective Subjective Notes No complaints. Stable. Objective Vitals/I&O Vital Signs Date Time Temp Pulse Resp B/P (MAP) Pulse Ox O2 Delivery O2 Flow Rate FiO2 11/06/17 08:00 97.0 62 20 102/52 (69) 95 11/05/17 16:00 Nasal Cannula 2.00 Labs Laboratory Tests Test 11/06/17 01:25 11/06/17 04:48 Vancomycin Level Trough 9.8 Creatinine 0.80 Estimat Glomerular Filtration Rate 72 Date/Time Source Procedure Growth Status 11/05/17 13:37 Wound Thigh Gram Stain - Final Resulted 11/05/17 13:37 Wound Thigh Wound Culture Pending Resulted Radiology Last Impressions Abdomen/Pelvis CT 11/03/17 0000 Signed Impressions: Service Date/Time: Friday, November 03, 2017 20:20 - CONCLUSION: Significant soft tissue edema and subcutaneous air in the right abdominal sidewall with overlying skin thickening concerning for a severe cellulitis. At this point did not see drainable fluid collection or abscess for drainage. Large lipoma in the left lateral sidewall. Solid left adrenal mass needs outpatient MRI with in phase out of phase imaging Mass posterior to the bladder mostly benign in appearance. Roque Mazariegos MD Narrative Exam NAD Right flank vac in place with good seal minimal output, surrounding erythema stable, induration improved A/P Assessment and Plan 61 yo F POD 1 I&D right flank abscess with vac placement. Cont IV antibiotics and vac. Plan vac change Wednesday with possible dc Wednesday or Wednesday with portable vac. Mark,Mason REECE Nov 06, 2017 12:14
--- NOTE | 2017-11-06 15:31 | HHI.PR ---
Subjective Remarks Pts pain is controlled well with oral pain meds Pt has been afebrile Objective Vitals Vital Signs Date Time Temp Pulse Resp B/P (MAP) Pulse Ox O2 Delivery O2 Flow Rate FiO2 11/06/17 12:00 97.9 73 20 95/57 (70) 96 11/06/17 08:00 97.0 62 20 102/52 (69) 95 11/06/17 04:00 96.2 77 20 99/49 (66) 93 11/06/17 00:09 96.5 75 21 115/60 (78) 94 11/05/17 20:00 95.6 79 21 118/58 (78) 95 11/05/17 16:00 95.8 78 18 122/58 (79) 97 11/05/17 16:00 95 Nasal Cannula 2.00 11/06/17 11/06/17 11/07/17 15:00 23:00 07:00 Intake Total 240 ml Balance 240 ml Intake Oral 240 ml Result Diagram: 11/05/17 0513 11/06/17 0448 Other Results Laboratory Tests Test 11/05/17 05:13 11/06/17 01:25 11/06/17 04:48 White Blood Count 7.5 TH/MM3 Red Blood Count 3.81 MIL/MM3 Hemoglobin 11.2 GM/DL Hematocrit 34.2 % Mean Corpuscular Volume 89.7 FL Mean Corpuscular Hemoglobin 29.3 PG Mean Corpuscular Hemoglobin Concent 32.6 % Red Cell Distribution Width 13.3 % Platelet Count 334 TH/MM3 Mean Platelet Volume 8.4 FL Neutrophils (%) (Auto) 65.5 % Lymphocytes (%) (Auto) 23.7 % Monocytes (%) (Auto) 7.3 % Eosinophils (%) (Auto) 2.6 % Basophils (%) (Auto) 0.9 % Neutrophils # (Auto) 4.9 TH/MM3 Lymphocytes # (Auto) 1.8 TH/MM3 Monocytes # (Auto) 0.6 TH/MM3 Eosinophils # (Auto) 0.2 TH/MM3 Basophils # (Auto) 0.1 TH/MM3 CBC Comment DIFF FINAL Differential Comment Blood Urea Nitrogen 13 MG/DL Creatinine 0.95 MG/DL 0.80 MG/DL Random Glucose 101 MG/DL Calcium Level 8.2 MG/DL Magnesium Level 2.2 MG/DL Sodium Level 139 MEQ/L Potassium Level 4.1 MEQ/L Chloride Level 104 MEQ/L Carbon Dioxide Level 29.1 MEQ/L Anion Gap 6 MEQ/L Estimat Glomerular Filtration Rate 59 ML/MIN 72 ML/MIN Vancomycin Level Trough 9.8 MCG/ML Imaging Last Impressions Abdomen/Pelvis CT 11/03/17 0000 Signed Impressions: Service Date/Time: Friday, November 03, 2017 20:20 - CONCLUSION: Significant soft tissue edema and subcutaneous air in the right abdominal sidewall with overlying skin thickening concerning for a severe cellulitis. At this point did not see drainable fluid collection or abscess for drainage. Large lipoma in the left lateral sidewall. Solid left adrenal mass needs outpatient MRI with in phase out of phase imaging Mass posterior to the bladder mostly benign in appearance. Roque Mazariegos MD Objective Remarks General: NAD, AAOx3 Chest: CTA Cardiac: Regular Abd: +BS, wound vac in place in mid right abdomen, previous surrounding erythema has improved Ext: No edema A/P Problem List: (1) Abscess of skin of abdomen ICD Codes: L02.211 - Cutaneous abscess of abdominal wall Status: Acute Plan: Abdominal wall abscess MRSA infection - Pt is a 61 y/o female who was directly admitted by her PCP, Dr. Dow, for an abdominal wall abscess that has failed to respond to outpt abx tx and localized I&D. - She was initially evaluated 10/29/16 and placed on Bactrim DS. The abscess increased in size and pain so she presented to ER 11/01/17 for I&D. Culture obtained at that time has grown out MRSA ( likely community acquired form). She has been taking Bactrim DS since 10/29/16 and Doxy was added on 11/01/17. Pt was also given Rocephin injection in PCP office on 11/02/17. She presented back to PCP office for re-eval on 11/03 and the anterior aspect of abscess had improved somewhat, but there was evidence of progression posteriorly with more erythema, tenderness and induration. - Pt was started on Vancomycin IV on 11/03/17. - MRSA noted on culture from 11/01/17 - CT Abd/pelvis (11/03/17) --> Significant soft tissue edema and subcutaneous air in the right abdominal sidewall with overlying skin thickening concerning for a severe cellulitis. Large lipoma in the left lateral sidewall. - Zosyn added on 11/04/17 to cover for anaerobes with noted gas in the underlying tissues - General Surgery was consulted and Dr. Flores who took pt to OR on 11/05 for debridement of abscess and wound vac placed - Cultures growing MRSA - Stop Zosyn Adrenal Mass - CT Abd/pelvis (11/03/17) also noted a solid left adrenal mass - She will need outpatient MRI for followup - We will need to discuss with her before d/c home GERD - PPI Anxiety - Continue home meds. - Ativan prn (2) GERD (gastroesophageal reflux disease) ICD Codes: K21.9 - Gastro-esophageal reflux disease without esophagitis Status: Chronic (3) Anxiety ICD Codes: F41.9 - Anxiety disorder, unspecified Status: Chronic Assessment and Plan Patient examined. Assessment and plan formulated with Latasha Hogue PA-C. I agree with the above. Latasha Hogue Nov 06, 2017 15:31 Antony Haines DO Nov 08, 2017 22:46
[2017-11-06 16:00] VITALS: BP 93/51; PULSE 58; RESP 20; TEMP 97.6; O2SAT 96
[2017-11-06] MEDS: VANCOMYCIN INJ 1,750 MG in SODIUM CHLORID 0.9% 500 ML INJ 500 ML IV SCH (17:00)
[2017-11-06 20:00] VITALS: BP 109/55; PULSE 70; RESP 21; TEMP 97.6; O2SAT 95
[2017-11-07 00:04] VITALS: BP 102/51; PULSE 61; RESP 21; TEMP 96.4; O2SAT 93
[2017-11-07] MEDS: oxyCODONE/ACETAMINOPHEN 5 MG/325 MG TAB PO PRN ×2 (04:31→15:28)
[2017-11-07 08:00] VITALS: BP 116/63; PULSE 63; RESP 19; TEMP 97.2; O2SAT 96
[2017-11-07] MEDS: ESCITALOPRAM OXALATE 10 MG TAB PO SCH (09:20)
[2017-11-07] MEDS: buPROPion HCL 150 MG SUSTAINED RELEASE TAB PO SCH (09:20)
[2017-11-07] MEDS: ESTRADIOL 1 MG TAB PO SCH (09:20)
[2017-11-07] MEDS: OXYBUTYNIN CHLORIDE 5 MG TAB PO SCH (09:20)
[2017-11-07] MEDS: PANTOPRAZOLE SOD 40 MG DELAYED RELEASE TAB PO SCH (09:21)
--- NOTE | 2017-11-07 10:17 | HHI.PR ---
Subjective Remarks Pt reports that she slept fairly well last night. She reports that the pain is worse when she is up moving around. Objective Vitals Vital Signs Date Time Temp Pulse Resp B/P (MAP) Pulse Ox O2 Delivery O2 Flow Rate FiO2 11/07/17 08:00 97.2 63 19 116/63 (80) 96 11/07/17 00:04 96.4 61 21 102/51 (68) 93 11/06/17 20:00 97.6 70 21 109/55 (73) 95 11/06/17 20:00 Room Air 11/06/17 16:00 97.6 58 20 93/51 (65) 96 11/06/17 12:00 97.9 73 20 95/57 (70) 96 11/07/17 11/07/17 11/08/17 15:00 23:00 07:00 Intake Total 120 ml Balance 120 ml Intake Oral 120 ml Result Diagram: 11/05/17 0513 11/06/17 0448 Other Results Laboratory Tests Test 11/06/17 01:25 11/06/17 04:48 Vancomycin Level Trough 9.8 MCG/ML Creatinine 0.80 MG/DL Estimat Glomerular Filtration Rate 72 ML/MIN Imaging Last Impressions Abdomen/Pelvis CT 11/03/17 0000 Signed Impressions: Service Date/Time: Friday, November 03, 2017 20:20 - CONCLUSION: Significant soft tissue edema and subcutaneous air in the right abdominal sidewall with overlying skin thickening concerning for a severe cellulitis. At this point did not see drainable fluid collection or abscess for drainage. Large lipoma in the left lateral sidewall. Solid left adrenal mass needs outpatient MRI with in phase out of phase imaging Mass posterior to the bladder mostly benign in appearance. Roque Mazariegos MD Objective Remarks General: NAD, AAOx3 Chest: CTA Cardiac: Regular Abd: +BS, wound vac in place in mid right abdomen, previous surrounding erythema has improved Ext: No edema A/P Problem List: (1) Abscess of skin of abdomen ICD Codes: L02.211 - Cutaneous abscess of abdominal wall Status: Acute Plan: Abdominal wall abscess MRSA infection - Pt is a 61 y/o female who was directly admitted by her PCP, Dr. Dow, for an abdominal wall abscess that has failed to respond to outpt abx tx and localized I&D. - She was initially evaluated 10/29/16 and placed on Bactrim DS. The abscess increased in size and pain so she presented to ER 11/01/17 for I&D. Culture obtained at that time has grown out MRSA ( likely community acquired form). She has been taking Bactrim DS since 10/29/16 and Doxy was added on 11/01/17. Pt was also given Rocephin injection in PCP office on 11/02/17. She presented back to PCP office for re-eval on 11/03 and the anterior aspect of abscess had improved somewhat, but there was evidence of progression posteriorly with more erythema, tenderness and induration. - Pt was started on Vancomycin IV on 11/03/17. - MRSA noted on culture from 11/01/17 - CT Abd/pelvis (11/03/17) --> Significant soft tissue edema and subcutaneous air in the right abdominal sidewall with overlying skin thickening concerning for a severe cellulitis. Large lipoma in the left lateral sidewall. - Zosyn added on 11/04/17 to cover for anaerobes with noted gas in the underlying tissues - General Surgery was consulted and Dr. Flores who took pt to OR on 11/05 for debridement of abscess and wound vac placed - Cultures growing MRSA, sensitivities to follow - Stop Zosyn Adrenal Mass - CT Abd/pelvis (11/03/17) also noted a solid left adrenal mass - She will need outpatient MRI for followup - We will need to discuss with her before d/c home GERD - PPI Anxiety - Continue home meds. - Ativan prn (2) GERD (gastroesophageal reflux disease) ICD Codes: K21.9 - Gastro-esophageal reflux disease without esophagitis Status: Chronic (3) Anxiety ICD Codes: F41.9 - Anxiety disorder, unspecified Status: Chronic Assessment and Plan Patient examined. Assessment and plan formulated with Latasha Hogue PA-C. I agree with the above. Latasha Hogue Nov 07, 2017 10:17 Antony Haines DO Nov 08, 2017 22:46
[2017-11-07] MEDS: VANCOMYCIN INJ 1,750 MG in SODIUM CHLORID 0.9% 500 ML INJ 500 ML IV SCH (11:00)
[2017-11-07 12:00] VITALS: BP 119/60; PULSE 62; RESP 19; TEMP 97.2; O2SAT 95
[2017-11-07] MEDS: ONDANSETRON HCL 4 MG/2 ML VIAL IV PUSH PRN (15:28)
[2017-11-07 16:00] VITALS: BP 126/58; PULSE 60; RESP 20; TEMP 97.4; O2SAT 95
[2017-11-07] MEDS ORDERED: PHENOL 1.4% SOLN 180 ML BTL OROPHARYNG ONE (17:30)
[2017-11-07] MEDS ORDERED: PHENOL 1.4% SOLN 180 ML BTL OROPHARYNG PRN (17:30)
[2017-11-07 20:00] VITALS: BP 102/53; PULSE 61; RESP 18; TEMP 96.5; O2SAT 93
[2017-11-07] MEDS: LORazepam 1 MG TAB PO PRN (22:30)
[2017-11-08] VITALS: BP 104/54; PULSE 73; RESP 19; TEMP 96.9; O2SAT 93
[2017-11-08] MEDS: oxyCODONE/ACETAMINOPHEN 5 MG/325 MG TAB PO PRN ×2 (03:56→18:09)
[2017-11-08] MEDS: VANCOMYCIN INJ 1,750 MG in SODIUM CHLORID 0.9% 500 ML INJ 500 ML IV SCH (05:53)
[2017-11-08 08:00] VITALS: BP 107/55; PULSE 63; RESP 18; TEMP 97.1; O2SAT 96
[2017-11-08 08:05] LABS: CREATININE 1.58 MG/DL (0.50-1.00)
[2017-11-08] MEDS: OXYBUTYNIN CHLORIDE 5 MG TAB PO SCH (08:30)
[2017-11-08] MEDS: PANTOPRAZOLE SOD 40 MG DELAYED RELEASE TAB PO SCH (08:30)
[2017-11-08] MEDS: buPROPion HCL 150 MG SUSTAINED RELEASE TAB PO SCH (08:30)
[2017-11-08] MEDS: ESTRADIOL 1 MG TAB PO SCH (08:30)
[2017-11-08] MEDS: ESCITALOPRAM OXALATE 10 MG TAB PO SCH (08:31)
[2017-11-08 12:00] VITALS: BP 108/52; PULSE 79; RESP 20; TEMP 97.5; O2SAT 93
[2017-11-08 16:00] VITALS: BP 109/59; PULSE 68; RESP 20; TEMP 97.8; O2SAT 93
--- NOTE | 2017-11-08 17:49 | HHI.PR ---
Subjective Subjective Notes No complaints. Objective Vitals/I&O Vital Signs Date Time Temp Pulse Resp B/P (MAP) Pulse Ox O2 Delivery O2 Flow Rate FiO2 11/08/17 16:00 97.8 68 20 109/59 (76) 93 11/08/17 11:45 Room Air 11/05/17 16:00 2.00 Labs Laboratory Tests Test 11/08/17 07:16 Creatinine 1.58 Estimat Glomerular Filtration Rate 33 Date/Time Source Procedure Growth Status 11/05/17 13:37 Wound Thigh Gram Stain - Final Complete 11/05/17 13:37 Wound Culture - Final S. Aureus Mrsa Complete Radiology Last Impressions Abdomen/Pelvis CT 11/03/17 0000 Signed Impressions: Service Date/Time: Friday, November 03, 2017 20:20 - CONCLUSION: Significant soft tissue edema and subcutaneous air in the right abdominal sidewall with overlying skin thickening concerning for a severe cellulitis. At this point did not see drainable fluid collection or abscess for drainage. Large lipoma in the left lateral sidewall. Solid left adrenal mass needs outpatient MRI with in phase out of phase imaging Mass posterior to the bladder mostly benign in appearance. Roque Mazariegos MD Narrative Exam NAD Right flank vac in place with good seal minimal output. Sponge removed and there is no purulence, some granulation tissue present. Wet to dry placed. Wound is [id number] A/P Assessment and Plan 61 yo F POD 3 I&D right flank abscess with vac placement. Wet to dry dressing for now. Plan dc home with vac likely tomorrow. Mason Flores MD Nov 08, 2017 17:49
[2017-11-08] MEDS: CLINDAMYCIN 150 MG CAP PO SCH (18:09)
[2017-11-08] MEDS: ONDANSETRON HCL 4 MG/2 ML VIAL IV PUSH PRN (18:12)
--- NOTE | 2017-11-08 18:17 | HHI.PR ---
Subjective Remarks Pt had wound vac removed today in anticipation of discharge tomorrow likely with a wound vac replaced prior to discharge Pt is having a lot of pain after wound vac removal Afebrile Objective Vitals Vital Signs Date Time Temp Pulse Resp B/P (MAP) Pulse Ox O2 Delivery O2 Flow Rate FiO2 11/08/17 16:00 97.8 68 20 109/59 (76) 93 11/08/17 12:00 97.5 79 20 108/52 (70) 93 11/08/17 11:45 Room Air 11/08/17 08:00 97.1 63 18 107/55 (72) 96 11/08/17 00:00 96.9 73 19 104/54 (71) 93 11/07/17 21:52 Room Air 11/07/17 20:00 96.5 61 18 102/53 (69) 93 Result Diagram: 11/05/17 0513 11/08/17 0716 Other Results Laboratory Tests Test 11/08/17 07:16 Creatinine 1.58 MG/DL Estimat Glomerular Filtration Rate 33 ML/MIN Imaging Last Impressions Abdomen/Pelvis CT 11/03/17 0000 Signed Impressions: Service Date/Time: Friday, November 03, 2017 20:20 - CONCLUSION: Significant soft tissue edema and subcutaneous air in the right abdominal sidewall with overlying skin thickening concerning for a severe cellulitis. At this point did not see drainable fluid collection or abscess for drainage. Large lipoma in the left lateral sidewall. Solid left adrenal mass needs outpatient MRI with in phase out of phase imaging Mass posterior to the bladder mostly benign in appearance. Roque Mazariegos MD Objective Remarks General: NAD, AAOx3 Chest: CTA Cardiac: Regular Abd: +BS, bandages place in mid right abdomen, previous surrounding erythema has improved Ext: No edema A/P Problem List: (1) Abscess of skin of abdomen ICD Codes: L02.211 - Cutaneous abscess of abdominal wall Status: Acute Plan: Abdominal wall abscess MRSA infection - Pt is a 61 y/o female who was directly admitted by her PCP, Dr. Dow, for an abdominal wall abscess that has failed to respond to outpt abx tx and localized I&D. - She was initially evaluated 10/29/16 and placed on Bactrim DS. The abscess increased in size and pain so she presented to ER 11/01/17 for I&D. Culture obtained at that time has grown out MRSA ( likely community acquired form). She has been taking Bactrim DS since 10/29/16 and Doxy was added on 11/01/17. Pt was also given Rocephin injection in PCP office on 11/02/17. She presented back to PCP office for re-eval on 11/03 and the anterior aspect of abscess had improved somewhat, but there was evidence of progression posteriorly with more erythema, tenderness and induration. - Pt was started on Vancomycin IV on 11/03/17. - MRSA noted on culture from 11/01/17 - CT Abd/pelvis (11/03/17) --> Significant soft tissue edema and subcutaneous air in the right abdominal sidewall with overlying skin thickening concerning for a severe cellulitis. Large lipoma in the left lateral sidewall. - Zosyn added on 11/04/17 to cover for anaerobes with noted gas in the underlying tissues - General Surgery was consulted and Dr. Flores who took pt to OR on 11/05 for debridement of abscess and wound vac placed - Cultures growing MRSA, sensitivities reviewed - Zosyn stopped on 11/06 - Vancomycin stopped on 11/08 - Clindamycin 600mg BID started on 11/08, pt likely will need to complete 2 weeks of Abx with close followup with General surgery and her PCP, Dr. Dow - Case management to arrange for [facility] for wound vac changes. - Anticipate discharge to home tomorrow with C Adrenal Mass - CT Abd/pelvis (11/03/17) also noted a solid left adrenal mass - She will need outpatient MRI for followup GERD - PPI Anxiety - Continue home meds. - Ativan prn (2) GERD (gastroesophageal reflux disease) ICD Codes: K21.9 - Gastro-esophageal reflux disease without esophagitis Status: Chronic (3) Anxiety ICD Codes: F41.9 - Anxiety disorder, unspecified Status: Chronic Assessment and Plan Patient examined. Assessment and plan formulated with Latasha Hogue PA-C. I agree with the above. Case d/w Dr. Flores (11/08) Abx changed to PO clindamycin Pt to discharge to home 11/09 with HHC and wound VAC Latasha Hogue Nov 08, 2017 18:17 Antony Haines DO Nov 08, 2017 22:47
[2017-11-08 20:00] VITALS: BP 104/58; PULSE 88; RESP 20; TEMP 98.9; O2SAT 95
[2017-11-08] MEDS ORDERED: PHARMACY ORDERED LAB ONE (22:45)
[2017-11-08] MEDS: LORazepam 1 MG TAB PO PRN (23:49)
[2017-11-09] VITALS: BP 98/59; PULSE 65; RESP 20; TEMP 97.5; O2SAT 96
[2017-11-09 00:49] LABS: BICARBONATE 27.9 MEQ/L (21.0-32.0); CALCIUM 8.6 MG/DL (8.5-10.1); CREATININE 1.68 MG/DL (0.50-1.00); MAGNESIUM 2.2 MG/DL (1.5-2.5)
[2017-11-09 00:52] LABS: VANCOMYCIN TROUGH 32.7 MCG/ML (5.0-10.0)
[2017-11-09 08:00] VITALS: BP 128/61; PULSE 76; RESP 20; TEMP 96.9; O2SAT 95
[2017-11-09] MEDS: ESTRADIOL 1 MG TAB PO SCH (08:30)
[2017-11-09] MEDS: PANTOPRAZOLE SOD 40 MG DELAYED RELEASE TAB PO SCH (08:30)
[2017-11-09] MEDS: CLINDAMYCIN 150 MG CAP PO SCH ×3 (08:30→18:21)
[2017-11-09] MEDS: ESCITALOPRAM OXALATE 10 MG TAB PO SCH (08:30)
[2017-11-09] MEDS: buPROPion HCL 150 MG SUSTAINED RELEASE TAB PO SCH (08:31)
[2017-11-09] MEDS: OXYBUTYNIN CHLORIDE 5 MG TAB PO SCH (08:31)
[2017-11-09] MEDS: oxyCODONE/ACETAMINOPHEN 5 MG/325 MG TAB PO PRN (08:34)
--- NOTE | 2017-11-09 09:22 | HHI.FF ---
Face to Face Verification Diagnosis: (1) Open wound of flank (2) Abscess of skin of abdomen Home Health Nursing Order: Signs/symptoms of disease process Wound care and dressing changes Nursing assessment with vital signs Instructions: Wet to dry dressing with one damp 4x4 packed into wound with dry dressing on top daily. Tomorrow 11/10/17 initiate wound vac placement with one small sponge cut to size and placed to continuous suction -125mmHg. Wound vac changes MWF. I have seen patient Niurka Patiño on 11/09/17. My clinical findings support the need for the requested home health care services because: Ltd mobility - disease progression Need for psychosocial assistance Infection w/ risk of complications I certify that my clinical findings support that this patient is homebound because: Post-op weakness MarkMason MD Nov 09, 2017 09:22
--- NOTE | 2017-11-09 11:53 | RADRPT ---
EXAM DATE/TIME: 11/09/2017 10:13 [facility] COMPARISON: CHEST PA & LAT, July 13, 2014, 18:28. INDICATIONS : Short of breath, discomfort in upper, anterior chest MEDICAL HISTORY : None. SURGICAL HISTORY : Hysterectomy. ENCOUNTER: Subsequent ACUITY: 4 - 6 days PAIN SCORE: 3/10 LOCATION: Bilateral chest FINDINGS: A single view of the chest demonstrates the lungs to be symmetrically aerated without evidence of mas s, infiltrate or effusion. The cardiomediastinal contours are unremarkable. Osseous structures are intact. There is a thin open like area of density at the left base consistent with scarring or atelec tasis CONCLUSION: Been oblique area of linear density left base retrocardiac region consistent with scarring or atelect vianey Newsome MD on November 09, 2017 at 11:49 Board Certified Radiologist. This report was verified electronically.
[2017-11-09 12:00] VITALS: BP 116/60; PULSE 73; RESP 20; TEMP 97.4; O2SAT 97
--- NOTE | 2017-11-09 15:12 | HHI.PR ---
Subjective Remarks Pt O2 requirements went up today and pt was on 5L this morning She has not been walking around much She is in the chair this afternoon and is down to 4L She feels slightly SOB with ambulation in the room Denies any cough or congestion Objective Vitals Vital Signs Date Time Temp Pulse Resp B/P (MAP) Pulse Ox O2 Delivery O2 Flow Rate FiO2 11/09/17 12:00 97.4 73 20 116/60 (78) 97 11/09/17 08:00 96.9 76 20 128/61 (83) 95 11/09/17 00:00 97.5 65 20 98/59 (72) 96 11/08/17 20:00 98.9 88 20 104/58 (73) 95 11/08/17 19:00 2.00 11/08/17 16:00 97.8 68 20 109/59 (76) 93 11/09/17 11/09/17 11/10/17 15:00 23:00 07:00 Intake Total 120 ml Balance 120 ml Intake Oral 120 ml Result Diagram: 11/05/17 0513 11/08/17 2330 Other Results Laboratory Tests Test 11/08/17 07:16 11/08/17 23:30 Creatinine 1.58 MG/DL 1.68 MG/DL Estimat Glomerular Filtration Rate 33 ML/MIN 31 ML/MIN Blood Urea Nitrogen 13 MG/DL Random Glucose 110 MG/DL Calcium Level 8.6 MG/DL Magnesium Level 2.2 MG/DL Sodium Level 139 MEQ/L Potassium Level 4.1 MEQ/L Chloride Level 105 MEQ/L Carbon Dioxide Level 27.9 MEQ/L Anion Gap 6 MEQ/L Vancomycin Level Trough 32.7 MCG/ML Imaging Last Impressions Chest X-Ray 11/09/17 0000 Signed Impressions: Service Date/Time: Thursday, November 09, 2017 10:13 - CONCLUSION: Been oblique area of linear density left base retrocardiac region consistent with scarring or atelectasis Christopher Newsome MD Abdomen/Pelvis CT 11/03/17 0000 Signed Impressions: Service Date/Time: Friday, November 03, 2017 20:20 - CONCLUSION: Significant soft tissue edema and subcutaneous air in the right abdominal sidewall with overlying skin thickening concerning for a severe cellulitis. At this point did not see drainable fluid collection or abscess for drainage. Large lipoma in the left lateral sidewall. Solid left adrenal mass needs outpatient MRI with in phase out of phase imaging Mass posterior to the bladder mostly benign in appearance. Roque Mazariegos MD Objective Remarks General: NAD, AAOx3 Chest: CTA Cardiac: Regular Abd: +BS, bandages place in mid right abdomen, previous surrounding erythema has improved Ext: No edema A/P Problem List: (1) Abscess of skin of abdomen ICD Codes: L02.211 - Cutaneous abscess of abdominal wall Status: Acute Plan: Abdominal wall abscess MRSA infection - Pt is a 61 y/o female who was directly admitted by her PCP, Dr. Dow, for an abdominal wall abscess that has failed to respond to outpt abx tx and localized I&D. - She was initially evaluated 10/29/16 and placed on Bactrim DS. The abscess increased in size and pain so she presented to ER 11/01/17 for I&D. Culture obtained at that time has grown out MRSA ( likely community acquired form). She has been taking Bactrim DS since 10/29/16 and Doxy was added on 11/01/17. Pt was also given Rocephin injection in PCP office on 11/02/17. She presented back to PCP office for re-eval on 11/03 and the anterior aspect of abscess had improved somewhat, but there was evidence of progression posteriorly with more erythema, tenderness and induration. - Pt was started on Vancomycin IV on 11/03/17. - MRSA noted on culture from 11/01/17 - CT Abd/pelvis (11/03/17) --> Significant soft tissue edema and subcutaneous air in the right abdominal sidewall with overlying skin thickening concerning for a severe cellulitis. Large lipoma in the left lateral sidewall. - Zosyn added on 11/04/17 to cover for anaerobes with noted gas in the underlying tissues - General Surgery was consulted and Dr. Flores who took pt to OR on 11/05 for debridement of abscess and wound vac placed - Cultures growing MRSA, sensitivities reviewed - Zosyn stopped on 11/06 - Vancomycin stopped on 11/08 - Clindamycin 600mg BID started on 11/08, pt likely will need to complete 2 weeks of Abx with close followup with General surgery and her PCP, Dr. Dow - Case management to arrange for [facility] for wound vac changes. - Nurse called this morning and pt was requiring 5L of supplemental O2. Pt has not been ambulating or out of bed much. Discussed getting pt OOB to chair. - IS - CXR with area of possible scaring vs. atelectasis - Try to wean off supplemental O2 toady - Anticipate d/c home tomorrow, will order a walk test for the morning in case she is still requiring supplemental O2 Adrenal Mass - CT Abd/pelvis (11/03/17) also noted a solid left adrenal mass - She will need outpatient MRI for followup GERD - PPI Anxiety - Continue home meds. - Ativan prn (2) GERD (gastroesophageal reflux disease) ICD Codes: K21.9 - Gastro-esophageal reflux disease without esophagitis Status: Chronic (3) Anxiety ICD Codes: F41.9 - Anxiety disorder, unspecified Status: Chronic Assessment and Plan Patient examined. Assessment and plan formulated with Latasha Hogue PA-C. I agree with the above. Latasha Hogue Nov 09, 2017 15:12 Antony Haines DO Nov 12, 2017 00:27
[2017-11-09 16:00] VITALS: BP 118/65; PULSE 72; RESP 19; TEMP 97.7; O2SAT 96
[2017-11-09 16:07] VITALS: O2SAT 97
[2017-11-09 20:00] VITALS: BP 134/64; PULSE 82; RESP 20; TEMP 97.6; O2SAT 95
[2017-11-09] MEDS: ONDANSETRON HCL 4 MG/2 ML VIAL IV PUSH PRN (20:38)
[2017-11-10] VITALS: BP 108/64; PULSE 79; RESP 20; TEMP 99.6; O2SAT 95
[2017-11-10 08:00] VITALS: BP_SYST 105; BP_SYST 126; BP_SYST 127; BP_DIAS 64; BP_DIAS 67; BP_DIAS 74; PULSE 75; PULSE 82; PULSE 89; RESP 16; RESP 17; TEMP 96; TEMP 97; TEMP 98.6; O2SAT 92; O2SAT 93; O2SAT 94
[2017-11-10] MEDS: OXYBUTYNIN CHLORIDE 5 MG TAB PO SCH (09:00)
[2017-11-10] MEDS: CLINDAMYCIN 150 MG CAP PO SCH ×2 (09:26→13:55)
[2017-11-10] MEDS: buPROPion HCL 150 MG SUSTAINED RELEASE TAB PO SCH (09:26)
[2017-11-10] MEDS: ESTRADIOL 1 MG TAB PO SCH (09:27)
[2017-11-10] MEDS: PANTOPRAZOLE SOD 40 MG DELAYED RELEASE TAB PO SCH (09:27)
[2017-11-10] MEDS: ESCITALOPRAM OXALATE 10 MG TAB PO SCH (09:27)
--- NOTE | 2017-11-10 10:51 | RADRPT ---
EXAM DATE/TIME: 11/10/2017 10:17 [facility] COMPARISON: No previous studies available for comparison. INDICATIONS : Hypoxia RADIATION DOSE: 14.83 CTDIvol (mGy) MEDICAL HISTORY : None SURGICAL HISTORY : Hysterectomy. ENCOUNTER: Initial ACUITY: 1 day PAIN SCALE: 4/10 LOCATION: Abdomen TECHNIQUE: Volumetric scanning of the chest was performed. Using automated exposure control and adjustment of t he mA and/or kV according to patient size, radiation dose was kept as low as reasonably achievable to obtain optimal diagnostic quality images. DICOM format image data is available electronically for r eview and comparison. Follow-up recommendations for detected pulmonary nodules are based at a minimum on nodule size and pa tient risk factors according to Fleischner Society Guidelines. FINDINGS: LUNGS: There is no consolidation or pneumothorax except for bibasilar atelectasis right greater than left. No concerning pulmonary nodule is visualized. PLEURAE: There is no pleural thickening or pleural effusion. MEDIASTINUM: The heart and great vessels demonstrate no acute abnormality. There is no mediastinal or hilar lymph adenopathy. AXILLAE: Within normal limits. No lymphadenopathy. MUSCULOSKELETAL: Within normal limits for patient age. MISCELLANEOUS: The visualized upper abdominal organs demonstrate no acute abnormality. CONCLUSION: Normal examination except for bibasilar atelectasis right greater than left. Roque Mazariegos MD on November 10, 2017 at 10:48 Board Certified Radiologist. This report was verified electronically.
[2017-11-10] MEDS ORDERED: OXYGENDME NAS.CANULA (10:55)
[2017-11-10] MEDS ORDERED: OXYGENTANK NAS.CANULA (10:55)
[2017-11-10 11:06] VITALS: O2SAT 94
[2017-11-10] MEDS ORDERED: CLIN150 PO (11:17)
--- NOTE | 2017-11-10 11:23 | HHI.DS ---
Discharge Summary Admission Date Nov 03, 2017 at 12:35 Discharge Date: Nov 10, 2017 Admitting Diagnosis Abdominal wall abscess, failed outpt therapy (1) Abscess of skin of abdomen ICD Codes: L02.211 - Cutaneous abscess of abdominal wall Status: Acute (2) GERD (gastroesophageal reflux disease) ICD Codes: K21.9 - Gastro-esophageal reflux disease without esophagitis Status: Chronic (3) Anxiety ICD Codes: F41.9 - Anxiety disorder, unspecified Status: Chronic Consultants Dr. Flores, general surgery Procedures 11/05 for debridement of abscess and wound vac placed Brief History 61 y.o. obese female sent to [place] for direct admission re: abdominal wall abscess that has failed to respond to outpt abx tx and localized I&D. She was initially evaluated 10/29/16 and placed on abx. Abscess increased in size and pain so she presented to ER 11/01/17 for I&D. Cltx obtained at that time has grown out MRSA (likely community acquired form). She has been taking Bactrim DS since 10/29/16. Doxy was added 11/01/17 and she was given Rocephin injection in PCP office 11/02/17. She presented to PCP office for re-eval again today. The anterior aspect of abscess had improved somewhat, but there was evidence of progression posteriorly with more erythema, TTP and induration. Additionally exam revealed possible deep, loculated abscess. Pt reported clamminess and chills at home so direct admit was undertaken. CBC/BMP: 11/08/17 2330 Significant Findings Laboratory Tests Test 11/08/17 07:16 11/08/17 23:30 Creatinine 1.58 MG/DL (0.50-1.00) 1.68 MG/DL (0.50-1.00) Estimat Glomerular Filtration Rate 33 ML/MIN (>89) 31 ML/MIN (>89) Random Glucose 110 MG/DL (74-106) Vancomycin Level Trough 32.7 MCG/ML (5.0-10.0) Imaging Last Impressions Chest CT 11/10/17 0000 Signed Impressions: Service Date/Time: Friday, November 10, 2017 10:17 - CONCLUSION: Normal examination except for bibasilar atelectasis right greater than left. Roque Mazariegos MD Chest X-Ray 11/09/17 0000 Signed Impressions: Service Date/Time: Thursday, November 09, 2017 10:13 - CONCLUSION: Been oblique area of linear density left base retrocardiac region consistent with scarring or atelectasis Christopher Newsome MD Abdomen/Pelvis CT 11/03/17 0000 Signed Impressions: Service Date/Time: Friday, November 03, 2017 20:20 - CONCLUSION: Significant soft tissue edema and subcutaneous air in the right abdominal sidewall with overlying skin thickening concerning for a severe cellulitis. At this point did not see drainable fluid collection or abscess for drainage. Large lipoma in the left lateral sidewall. Solid left adrenal mass needs outpatient MRI with in phase out of phase imaging Mass posterior to the bladder mostly benign in appearance. Roque Mazariegos MD PE at Discharge General: NAD, AAOx3 Chest: CTA Cardiac: Regular Abd: +BS, bandages place in mid right abdomen, previous surrounding erythema has improved Ext: No edema Hospital Course Abdominal wall abscess MRSA infection - Pt is a 61 y/o female who was directly admitted by her PCP, Dr. Dow, for an abdominal wall abscess that has failed to respond to outpt abx tx and localized I&D. - She was initially evaluated 10/29/16 and placed on Bactrim DS. The abscess increased in size and pain so she presented to ER 11/01/17 for I&D. Culture obtained at that time has grown out MRSA ( likely community acquired form). She has been taking Bactrim DS since 10/29/16 and Doxy was added on 11/01/17. Pt was also given Rocephin injection in PCP office on 11/02/17. She presented back to PCP office for re-eval on 11/03 and the anterior aspect of abscess had improved somewhat, but there was evidence of progression posteriorly with more erythema, tenderness and induration. - Pt was started on Vancomycin IV on 11/03/17. - MRSA noted on culture from 11/01/17 - CT Abd/pelvis (11/03/17) --> Significant soft tissue edema and subcutaneous air in the right abdominal sidewall with overlying skin thickening concerning for a severe cellulitis. Large lipoma in the left lateral sidewall. - Zosyn added on 11/04/17 to cover for anaerobes with noted gas in the underlying tissues - General Surgery was consulted and Dr. Flores who took pt to OR on 11/05 for debridement of abscess and wound vac placed - Cultures growing MRSA, sensitivities reviewed - Zosyn stopped on 11/06 - Vancomycin stopped on 11/08 - Clindamycin 600mg BID started on 11/08, pt likely will need to complete 2 weeks of Abx with close followup with General surgery and her PCP, Dr. Dow - Case management to arrange for [facility] for wound vac changes. - Nurse called this morning and pt was requiring 5L of supplemental O2. Pt has not been ambulating or out of bed much. Discussed getting pt OOB to chair. - IS - CXR with area of possible scaring vs. atelectasis - Try to wean off supplemental O2 toady - Anticipate d/c home today with home oxygen - CT chest (11/10/17) without contrast reviewed and reveals Normal exam except for bibasilar atelectasis right greater than left. IS Q1hour while awake Adrenal Mass - CT Abd/pelvis (11/03/17) also noted a solid left adrenal mass - She will need outpatient MRI for followup GERD - PPI Anxiety - Continue home meds. - Ativan prn DVT prophylaxis with SCDs patient has no calf tenderness on exam Pt Condition on Discharge: Stable Discharge Disposition: Disch w/ Home Health Serv Discharge Instructions DIET: Follow Instructions for: Heart Healthy Diet Activities you can perform: See Additionl Instruction Other Activity Instructions: activity per surgery Follow up Referrals: PCP Follow-up - [address] Dow Surgical - 1 Week with Mason Flores MD New Medications: Oxygen (O2) (Oxygen (O2)) Device LITER TAURUS.CANULA CONTINUOUS for Prevent Hypoxemia, #2 Oxygen Concentrator Portable Gaseous 2 L/min via Nasal Canula Continuous For 1 month Oxygen tank (Oxygen tank) 1 Ea Tank LITER TAURUS.CANULA CONTINUOUS for HYPOXEMIA PREVENTION, #2 Oxygen Concentrator Portable Gaseous 2 L/min via Nasal Cannula Continuous For 1 month Clindamycin (Cleocin) 150 Mg Cap 600 MG PO TID for antibiotic for 13 Days, #39 CAP 0 Refills Continued Medications: Acetaminophen-Codeine (Tylenol-Codeine #3) 300-30 mg Tab 1 TAB PO Q4H PRN for PAIN, TAB 0 Refills Bupropion HCl (Bupropion HCl) 75 Mg Tab 75 MG PO BID for Control Depression, TAB 0 Refills Estradiol (Estradiol) 2 Mg Tab 2 MG PO DAILY for Estrogen Supplements, #30 TAB 0 Refills Omeprazole (Omeprazole) 20 Mg Tab 20 MG PO DAILY, #30 TAB 0 Refills Oxybutynin (Ditropan) 5 Mg Tab 5 MG PO Q12HR for Urinary Symptom Managemen, #60 TAB 0 Refills Discontinued Medications: Doxycycline Hyclate (Doxycycline Hyclate) 100 Mg Cap 100 MG PO BID for Infection, #20 CAP 0 Refills Additional Information Wound care per surgery. [facility] dressing changes and wound vac Patient examined. Assessment and plan formulated with Gianna Abbott PA-C. I agree with the above. Gianna Abbott Nov 10, 2017 11:23 Antony Haines DO Nov 12, 2017 00:28
[2017-11-10 12:00] VITALS: BP 109/54; PULSE 76; RESP 18; TEMP 98.9; O2SAT 96
[2017-11-10 13:05] LABS: CREATININE 1.99 MG/DL (0.50-1.00)
== END 2017-11-10 14:21 | disposition home health service (06) | DRG 581 ==
LOC: N07B 12:35
PROVIDERS: ADMIT Hospitalist; ATTEND Hospitalist
PROC: 0JD80ZZ Extraction of Abdomen Subcutaneous Tissue and Fascia, Open Approach (ICD-10-PCS; 2017-11-05)
PROC: 0J980ZZ Drainage of Abdomen Subcutaneous Tissue and Fascia, Open Approach (ICD-10-PCS; principal; 2017-11-05 12:43)
DX: L02.211 Cutaneous abscess of abdominal wall (principal); E55.9 Vitamin D deficiency, unspecified; B95.62 Methicillin resistant Staphylococcus aureus infection as the cause of diseases classified elsewhere; K21.9 Gastro-esophageal reflux disease without esophagitis; F41.9 Anxiety disorder, unspecified; E27.9 Disorder of adrenal gland, unspecified; E66.9 Obesity, unspecified; Z68.36 Body mass index [BMI] 36.0-36.9, adult; Z87.891 Personal history of nicotine dependence; L03.311 Cellulitis of abdominal wall
CPT/HCPCS: 71045; 71250; 74177; 80048; 80053; 80202; 82550; 82565; 82948; 83735; 85025; 85610; 85730; 86403; 87070; 87147; 87176; 87186; 87205; 93005; 94150; 94618; J0330; J1100; J2270; J2405; J2543; J3010; J3370; J7040; Q9963; Q9967

== ENCOUNTER 2017-12-13 06:26 | Day surgery (SDC) | payer OTHER ==
[~2017-12-13] VITALS: Ht 165.1 cm; Wt 97.0 kg
[2017-12-13] VITALS (7 sets, daily range): BP systolic 122–157; BP diastolic 71–102; PULSE 55–75; RESP 16–20; TEMP 98–98.4; O2SAT 89–99
[~2017-12-13 06:26] MED LIST changes: +CLIN150 PO; -DOXY100C PO; +OXYGENDME NAS.CANULA; +OXYGENTANK NAS.CANULA
[2017-12-13] MEDS ORDERED: ESCI10TA PO (07:22)
[2017-12-13] MEDS ORDERED: SODIUM CHLOR 0.9% 1000 ML IV SCH (07:30)
[2017-12-13] MEDS ORDERED: LIDOCAINE HCL 1% 20 ML VIAL ONE (07:49)
[2017-12-13] MEDS ORDERED: MIDAZOLAM HCL 2 MG/2 ML VIAL ONE (08:07)
[2017-12-13] MEDS ORDERED: fentaNYL CITRATE 250 MCG/5 ML AMP ONE (08:07)
--- NOTE | 2017-12-13 08:53 | PD.RAD ---
Post Procedure Progress Note Pre Procedure Diagnosis: (1) Adrenal mass, left Post Procedure Diagnosis: (1) Adrenal mass, left Procedure Date: Dec 13, 2017 Supervising Radiologist: Tyrese Neri Estimated blood loss: 2cc Anesthesia: Local, Conscious Sedation Plan of Activity Patient to Unit: ROPU Patient Condition: Good Additional Comments: Successful CT guided biopsy of the left adrenal mass 2 gore samples obtained.(20ga) Full dictated report to follow See PACS Report for procedural detail/treatment Tyrese Neri MD Dec 13, 2017 08:53
--- NOTE | 2017-12-13 10:16 | RADRPT ---
EXAM DATE/TIME: 12/13/2017 08:21 [facility] COMPARISON: CT THORAX W/O CONTRAST, November 10, 2017, 10:17. INDICATIONS : Left adrenal mass. SEDATION TIME: 30 minutes BIOPSY SITE: Left MEDICATION(S): 1.) 3 mg midazolam (Versed) IV 2.) 150 mcg fentanyl (Sublimaze) IV DEVICE(S): 1.) 20 gauge Temno core biopsy needle MEDICAL HISTORY : None. SURGICAL HISTORY : None. ENCOUNTER: Initial ACUITY: 1 day PAIN SCORE: 0/10 LOCATION: Left A total of 2 core specimen(s) were obtained and sent to the laboratory for pathologic evaluation. PROCEDURE: 1. CT guided adrenal, left biopsy. 2. Conscious sedation with continuous EKG and oximetry monitoring. 3. EKG and oximetry remained stable throughout the procedure. Prior to the procedure informed consent was obtained. Any appropriate prior imaging studies were rev iewed. Using automated exposure control and adjustment of the mA and/or kV according to patient size, radiat ion dose was kept as low as reasonably achievable to obtain optimal diagnostic quality images. DICOM format image data is available electronically for review and comparison. The site was prepped in a sterile fashion. Full sterile technique was used, including cap, mask, elijah rile gloves and gown and a large sterile sheet. Hand hygiene and 2% chlorhexidine and/or betadine/al cohol prep was utilized per protocol for cutaneous antisepsis. The skin and subcutaneous tissues wer e infiltrated with local anesthetic solution. With CT guidance the previously identified target was localized. Biopsy was performed using the presc ribed needle as above. Adequate hemostasis was obtained with compression at the puncture site. Follow-up CT scan reveals no hemorrhage. The patient tolerated the procedure well and there were no complications. The patient was returned to the Radiology Outpatient Unit in stable condition. CONCLUSION: Uncomplicated CT guided biopsy. Tyrese Neri MD on December 13, 2017 at 10:14 Board Certified Radiologist. This report was verified electronically.
== END 2017-12-13 12:55 | disposition home or self-care (01) ==
LOC: HRAD 06:26 → HRIP 06:30 → HRAD 12:55
PROVIDERS: ATTEND Family Medicine
DX: E27.9 Disorder of adrenal gland, unspecified (principal)
CPT/HCPCS: 60699; 77012; 88307; 99152; 99153; J2250; J3010; J7030; 88305